=== PATIENT | male | born 1950 | race Caucasian/White ===

== ENCOUNTER 2017-11-29 16:58 | Emergency (ER) | payer MEDICAID, OTHER ==
--- NOTE | 2017-11-29 17:10 | EDPHY ---
H & P Stated Complaint: R FLANK PAIN Time Seen by Provider: 11/29/17 17:09 HPI/ROS: HPI: This is a 67-year-old male who presents with Chief Complaint: Right flank pain Location:right posterior flank Quality: Sharp, constant pain Duration: Since around 830 this morning Signs and Symptoms: no fever, no nausea, no vomiting, no hematemesis, no blood in stool, no abdominal bloating, no diarrhea, no back pain, no urinary symptoms , no testicular/groin pain, no indigestion, no chest pain, no shortness of breath Timing: Acute, constant Severity: Moderate Context: Patient has a history of hypertension, gout presents with waking up this morning with right posterior flank pain that he describes as being moderate in intensity sharp in nature and constant. It is nonradiating in nature. Patient reports that he last urinated approximately 2-3 hours ago. No history of abdominal surgeries. Denies any fever/nausea/vomiting/diarrhea/ urinary symptoms/testicular or groin pain. has a history kidney stone and advised patient discharge drinking 8-10 glasses of water today. Denies any history with food intolerance is or early satiety. He has daily bowel movement. Every morning he performs yoga which he did this morning and had no relief of the discomfort. No recent heavy lifting or trauma to suggest lumbar pathology. No history of lower back pain. Modifying Factors: Yoga Comment: ROS: see HPI Constitutional: No fever, no chills, no weight loss Eyes: No blurred vision Respiratory: No shortness of breath, no cough Cardiovascular: No chest pain, no palpitations Gastrointestinal: No nausea, no vomiting, no diarrhea, no hematemesis, no blood in stool Genitourinary: No dysuria, no blood in urine Extremities: No myalgias, no edema Neurologic: No weakness, no numbness Skin: No rashes, no petechiae Hematologic: No bruising, no bleeding MEDICAL/SURGICAL/SOCIAL HISTORY: Medical history: Hypertension, gout Surgical history: Denies Social history: Nonsmoker. Family history noncontributory. CONSTITUTIONAL: Extremely polite and cooperative elderly white male, white ramírez, wears glasses, awake and alert, no obvious distress HEENT: Atraumatic and normocephalic, PERRL, EOMI. Nares patent; no rhinorrhea; no nasal mucosal edema. Tympanic membranes clear. Oropharynx clear, no exudate and moist pink mucosa. Airway patent. No lymphadenopathy. No meningismus. Cardiovascular: Normal S1/S2, regular rate, regular rhythm, without murmur rub or gallop. PULMONARY/CHEST: Symmetrical and nontender. Clear to auscultation bilaterally. Good air movement. No accessory muscle usage. ABDOMEN: Soft, nondistended, nontender, no rebound, no guarding, no peritoneal signs, no masses or organomegaly. Right mild CVAT. Bowel sounds heard x4 quadrants. EXTREMITIES: 2/2 pulses, strength 5/5, no deformities, no clubbing, no cyanosis or edema. NEUROLOGICAL: no focal neuro deficits. GCS 15. SKIN: Warm and dry, no erythema. no rash. Good capillary refill. Source: Patient, Family () Exam Limitations: No limitations - Personal History Current Tetanus/Diphtheria Vaccine: Yes - Medical/Surgical History Hx Asthma: No Hx Chronic Respiratory Disease: No Hx Diabetes: No Hx Cardiac Disease: No Hx Renal Disease: No Hx Cirrhosis: No Hx Alcoholism: No Hx HIV/AIDS: No Hx Splenectomy or Spleen Trauma: No Other PMH: HTN/GOUT - Social History Smoking Status: Never smoked Constitutional: Initial Vital Signs Temperature (C) 36.5 C 11/29/17 17:02 Heart Rate 70 11/29/17 17:02 Respiratory Rate 18 11/29/17 17:02 Blood Pressure 181/102 H 11/29/17 17:02 O2 Sat (%) 97 11/29/17 17:02 O2 Delivery Mode Room Air Allergies/Adverse Reactions: allopurinol Allergy (Unknown, Verified 11/29/17 17:00) Home Medications: Medication Instructions Recorded Colchicine [Colchicine (RX)] 0.6 mg PO BID 08/05/12 Lisinopril [Zestril 40 mg (RX)] 40 mg PO DAILY 08/05/12 Indomethacin Unknown Strength PRN 09/04/12 Cyclobenzaprine [Flexeril 10 MG 10 mg PO TID PRN #15 tab 11/29/17 (*)] Lidocaine [Lidoderm] 1 each TP Q12 PRN #6 adh..patch 11/29/17 ULORIC 11/29/17 Medical Decision Making - Diagnostics Imaging Results: Imaging Impressions Abdomen/Pelvis CT 11/29/17 17:15 Impression: Negative non-contrast CT examination of the urinary system. Atherosclerosis. Lower lumbar degenerative disk disease. Results called to Shae Cline PA-C, at 18:00. Attention: This CT examination is specifically designed to evaluate patients who are clinically suspected of having acute obstructive uropathy. This examination does not use radiographic contrast, and as such, provides only a limited evaluation of the abdomen, pelvis and retroperitoneum. If there is further clinical suspicion for pathological conditions other than obstructive uropathy, a complete CT evaluation of the abdomen and pelvis utilizing intravenous, oral, and rectal contrast should be considered. ED Course/Re-evaluation: Labs, urinalysis, IV fluids, CT abdomen and pelvis scan without contrast to evaluate for right ureterolithiasis. Given 1 L normal saline and IV Toradol 30 mg Reviewed vital signs upon arrival in show elevated blood pressure. Will re- evaluate prior to discharge suspect related to pain. 1759: Called by radiologist who advised that CT abdomen and pelvis scan shows no signs of ureterolithiasis, hydronephrosis, appendicitis, obstruction. Labs reviewed. No signs of leukocytosis/anemia/CECY. Sodium noted to be 132. + macrocytosis 1808: Reassessed patient who reports that he did change tires on his 's yesterday. Discussed that CT abdomen and pelvis scan shows multilevel lumbar degenerative disc disease as well as some stenosis. Lidoderm patch placed and given p.o. Valium 5 mg. Will give patient a prescription for Lidoderm patches and p.o. Flexeril. Advised to follow up with primary care if symptoms persist greater than 7-10 days at which time an MRI lumbar spine can be obtained outpatient. No signs of neurovascular compromise/tenting of skin/compartment syndrome/ extremities and joints examined above and below area of concern and are neurovascularly intact. No neurological signs to suggest emergent MRI required in the emergency room. This patient was seen under the supervision of my secondary supervising physician. I evaluated care for this patient independently. Discussed this patient with Dr. Lee who did not see the patient. Differential Diagnosis: Flank pain including but not limited to musculoskeletal causes, kidney stone, pyelonephritis, shingles, and intra-abdominal causes such as diverticulitis and appendicitis. - Data Points Laboratory Results: Laboratory Results 11/29/17 17:20 11/29/17 17:20 11/29/17 11/29/17 17:20 17:20 WBC 6.97 10^3/uL 10^3/uL (3.80-9.50) RBC 4.14 10^6/uL L 10^6/uL (4.40-6.38) Hgb 14.1 g/dL g/dL (13.7-17.5) Hct 41.5 % % (40.0-51.0) MCV 100.2 fL H fL (81.5-99.8) MCH 34.1 pg pg (27.9-34.1) MCHC 34.0 g/dL g/dL (32.4-36.7) RDW 13.2 % % (11.5-15.2) Plt Count 181 10^3/uL 10^3/uL (150-400) MPV 10.9 fL fL (8.7-11.7) Neut % (Auto) 74.7 % H % (39.3-74.2) Lymph % (Auto) 14.9 % L % (15.0-45.0) Brantley % (Auto) 8.8 % % (4.5-13.0) Eos % (Auto) 1.0 % % (0.6-7.6) Baso % (Auto) 0.3 % % (0.3-1.7) Nucleat RBC Rel Count 0.0 % % (0.0-0.2) Absolute Neuts (auto) 5.21 10^3/uL 10^3/uL (1.70-6.50) Absolute Lymphs (auto) 1.04 10^3/uL 10^3/uL (1.00-3.00) Absolute Monos (auto) 0.61 10^3/uL 10^3/uL (0.30-0.80) Absolute Eos (auto) 0.07 10^3/uL 10^3/uL (0.03-0.40) Absolute Basos (auto) 0.02 10^3/uL 10^3/uL (0.02-0.10) Absolute Nucleated RBC 0.00 10^3/uL 10^3/uL (0-0.01) Immature Gran % 0.3 % % (0.0-1.1) Immature Gran # 0.02 10^3/uL 10^3/uL (0.00-0.10) Sodium 132 mEq/L L mEq/L (135-145) Potassium 4.6 mEq/L mEq/L (3.3-5.0) Chloride 97 mEq/L mEq/L (97-110) Carbon Dioxide 22 mEq/l mEq/l (22-31) Anion Gap 13 mEq/L mEq/L (8-16) BUN 22 mg/dL mg/dL (7-23) Creatinine 1.0 mg/dL mg/dL (0.7-1.3) Estimated GFR > 60 Glucose 90 mg/dL mg/dL (70-100) Calcium 9.0 mg/dL mg/dL (8.5-10.4) Medications Given: Discontinued Medications Sodium Chloride (Ns) 1,000 mls @ 0 mls/hr IV ONCE ONE; Wide Open PRN Reason: Protocol Stop: 11/29/17 17:15 Last Admin: 11/29/17 17:23 Dose: 1,000 mls Ketorolac Tromethamine (Toradol) 30 mg IVP EDNOW ONE Stop: 11/29/17 17:15 Last Admin: 11/29/17 17:22 Dose: 30 mg Departure - Departure Disposition: Home, Routine, Self-Care Clinical Impression: Lumbar degenerative disc disease Strain of lumbar paraspinal muscle Qualifiers: Encounter type: initial encounter Qualified Code(s): S39.012A - Strain of muscle, fascia and tendon of lower back, initial encounter Condition: Good Instructions: Degenerative Disc Disease (ED), Low Back Strain (ED) Additional Instructions: No lifting greater than 10 lb until all symptoms have resolved. Take Tylenol 650 mg every 4 hours and/or Ibuprofen 600 mg every 8 hours with food as needed for pain. Use Flexeril every 8 hr as needed for muscle spasm. Apply Lidoderm patch every 12 hr as needed for lumbar paraspinous muscle pain. If Symptoms persist greater than 7-10 days, follow-up with primary care provider to obtain an lumbar MRI outpatient. Return to the ER immediately if you have new or worsening back pain, fevers/ chills, flu like symptoms, incontinence or inability to urinate or defecate, weakness, paralysis, or any other symptom that concerns you Referrals: Loreta Perez [Primary Care Provider] - As per Instructions Prescriptions: Cyclobenzaprine [Flexeril 10 MG (*)] 10 mg PO TID PRN #15 tab PRN Reason: Spasms Lidocaine [Lidoderm] 1 each TP Q12 PRN #6 adh..patch PRN Reason: Pain, Moderate
[2017-11-29] MEDS ORDERED: NS 1,000 ML IV ONE (17:14)
[2017-11-29] MEDS ORDERED: KETOROLAC 30 MG/1 ML SDV IVP ONE (17:14)
[2017-11-29] MEDS ORDERED: KETOROLAC 15 MG/1 ML SDV ONE (17:20)
[2017-11-29 17:36] LABS: PLATELET COUNT 181 10^3/uL (150-400)
[2017-11-29] MEDS ORDERED: LIDOCAINE 4%/MENTHOL 1% PATCH TD ONE (18:09)
[2017-11-29] MEDS ORDERED: DIAZEPAM 5 MG TAB PO ONE (18:09)
[2017-11-29 18:30] VITALS: BP 156/102
[2017-11-29] MEDS ORDERED: PATCH REMOVAL 1 EA PATCH TD SCH (21:00)
== END 2017-11-29 18:50 | disposition home or self-care (01) ==
DX: S39.012A Strain of muscle, fascia and tendon of lower back, initial encounter (principal); M51.36 Other intervertebral disc degeneration, lumbar region; E86.9 Volume depletion, unspecified; I10 Essential (primary) hypertension; X58.XXXA Exposure to other specified factors, initial encounter
CPT/HCPCS: 74176; 96361; 96374; 99285; J1885

== ENCOUNTER 2018-12-30 09:14 | Day surgery (SDC) | payer OTHER | END 2018-12-30 12:43 | disposition home or self-care (01) | LOC: FCATH 09:14 ==